=== PATIENT | female | born 1960 | race American Indian/Alaskan Native ===

== ENCOUNTER 2020-09-09 22:41 | Emergency (ER) | payer MEDICARE ==
[2020-09-09 22:56] VITALS: BP 137/88
[2020-09-09] MEDS ORDERED: dexAMETHasone 20 MG/5 ML VIAL IM ONE (22:56)
[2020-09-09] MEDS ORDERED: IPRATROPIUM/ALBUTEROL SULFATE 3 ML AMPUL.NEB IH ONE (22:56)
--- NOTE | 2020-09-09 23:04 | Emergency Department Report ---
Minor Respiratory - [facility] Chief Complaint: Upper Respiratory Infection Stated Complaint: COUGH Time Seen by Provider: 09/09/20 22:55 Duration: 8 days Severity: moderate Minor Respiratory: Yes Rhinorrhea, Yes Cough, Yes Shortness of Breath Other History: 60-year-old -[place] male with a current history of COPD and asthma presents to the emergency room complaining of shortness of breath and cough that is steady for the last 8 days. Patient denies any fever chills no nausea no vomiting. Patient reported to nurse that he has been coughing up yellow mucus. ED Review of Systems ROS: Stated complaint: COUGH Other details as noted in HPI ED Past Medical Hx - Social History Smoking Status: Current Every Day Smoker - Medications Home Medications: Home Medications Medication Instructions Recorded Confirmed Last Taken Type Azithromycin [Zithromax Z-KARYNA] 250 mg PO DAILY #6 tab 09/10/20 Unknown Rx Benzonatate [Tessalon Perles] 100 mg PO Q8HR #15 capsule 09/10/20 Unknown Rx Prednisone [predniSONE 5 mg (6-Day 5 mg PO .TAPER #1 tab.ds.pk 09/10/20 Unknown Rx Pack, 21 Tabs)] Minor Respiratory Exam - Exam General: Vital signs noted. No distress. Alert and acting appropriately. HEENT: Yes Moist Mucous Membranes, No Pharyngeal Erythema, No Pharyngeal Exudates, No Rhinorrhea, No Conjuctival Injection, No Frontal Tenderness, No Maxillary Tenderness Neck: Yes Supple, No Adenopathy Lungs: Yes Good Air Exchange, Yes Cough, No Wheezes, No Ronchi, No Stridor, No Labored Respirations, No Retractions, No Use of Accessory Muscles, No Other Abnormal Lung Sounds Heart: Yes Regular, No Murmur Abdomen: Yes Normal Bowel Sounds, No Tenderness, No Peritoneal Signs Skin: No Rash, No Edema Neurologic: Alert and oriented, no deficits. Musculoskeletal: Unremarkable. ED Course Vital Signs 09/09/20 22:54 Temperature 98.5 F Pulse Rate 101 H Respiratory 20 Rate Blood Pressure 137/88 O2 Sat by Pulse 95 Oximetry - Reevaluation(s) Reevaluation #1: 09/10/20 00:11 Patient lung exam is clear to auscultation. ED Medical Decision Making - Radiology Data Radiology results: report reviewed 60-year-old -[place] male with a current history of COPD and asthma presents to the emergency room complaining of shortness of breath and cough that is steady for the last 8 days. Patient denies any fever chills no nausea no vomiting. Patient reported to nurse that he has been coughing up yellow mucus. Chest x-ray is negative. Patient be treated for bronchitis with Zithromax prednisone taper Tessalon Perles. Patient is encouraged to continue using his inhaler. - Medical Decision Making 60-year-old -[place] male with a current history of COPD and asthma presents to the emergency room complaining of shortness of breath and cough that is steady for the last 8 days. Patient denies any fever chills no nausea no vomiting. Patient reported to nurse that he has been coughing up yellow mucus. Critical care attestation.: If time is entered above; I have spent that time in minutes in the direct care of this critically ill patient, excluding procedure time. ED Disposition Clinical Impression: Bronchitis Disposition: DC-01 TO HOME OR SELFCARE Is pt being admited?: No Does the pt Need Aspirin: No Condition: Stable Instructions: Chronic Bronchitis (ED), Upper Respiratory Infection, Adult, [id number] Additional Instructions: Please take medications as prescribed. Follow-up with your primary care provider. Prescriptions: Prednisone [predniSONE 5 mg (6-Day Pack, 21 Tabs)] 5 mg PO .TAPER #1 tab.ds.pk Benzonatate [Tessalon Perles] 100 mg PO Q8HR #15 capsule Azithromycin [Zithromax Z-KARYNA] 250 mg PO DAILY #6 tab Referrals: [facility] [Provider Group] - 3-5 Days Forms: Work/School Release Form(ED)
--- NOTE | 2020-09-09 23:38 | XRay Report ---
CHEST 2 VIEWS INDICATION / CLINICAL INFORMATION: sob,cough and rales. COMPARISON: None available. FINDINGS: SUPPORT DEVICES: None. HEART / MEDIASTINUM: No significant abnormality. LUNGS / PLEURA: No significant pulmonary or pleural abnormality. No pneumothorax. ADDITIONAL FINDINGS: No significant additional findings. IMPRESSION: 1. No acute findings. Signer Name: Kingston Jimenez MD Signed: 09/09/2020 11:34 PM Workstation Name: [id number]
== END 2020-09-10 00:30 | disposition home or self-care (01) ==
LOC: ED 22:41
DX: J40 Bronchitis, not specified as acute or chronic (principal); F17.200 Nicotine dependence, unspecified, uncomplicated; Z79.899 Other long term (current) drug therapy
CPT/HCPCS: 71046; 94640; 94644; 96372; 99283

== ENCOUNTER 2022-01-17 09:22 | Emergency (ER) | payer MEDICARE ==
[2022-01-17 09:29] VITALS: BP 121/91
[2022-01-17] MEDS ORDERED: ASPIRIN 325 MG TAB PO ONE (09:29)
--- NOTE | 2022-01-17 10:00 | XRay Report ---
CHEST 2 VIEWS INDICATION / CLINICAL INFORMATION: chest pain. COMPARISON: 09/09/2020 FINDINGS: SUPPORT DEVICES: None. HEART / MEDIASTINUM: No significant abnormality. LUNGS / PLEURA: No significant pulmonary or pleural abnormality. No pneumothorax. ADDITIONAL FINDINGS: No significant additional findings. IMPRESSION: 1. No acute findings. Signer Name: Bhaskar Lin DO Signed: 01/17/2022 9:55 AM Workstation Name: [id number]
[2022-01-17 11:26] LABS: Alanine Aminotransferase 103 units/L (7-56); Albumin 4.5 g/dL (3.9-5); BUN/Creatinine Ratio 14; Blood Urea Nitrogen 13 mg/dL (9-20); Calcium 9.4 mg/dL (8.4-10.2); Hemolysis Index 4
[2022-01-17 11:56] LABS: Basophils # (Auto) 0.1 K/mm3 (0.0-0.1); Basophils % (Auto) 1.3 % (0.0-1.8); Eosinophils # (Auto) 0.1 K/mm3 (0.0-0.4); Eosinophils % (Auto) 2.6 % (0.0-4.3); Hematocrit 42.5 % (35.5-45.6); Hemoglobin 14.7 gm/dl (11.8-15.2); Lymphocytes # (Auto) 2.2 K/mm3 (1.2-5.4); Lymphocytes % (Auto) 40.3 % (13.4-35.0); Mean Corpuscular HGB Conc 35 % (32-34); Mean Corpuscular Volume 103 fl (84-94); Monocytes # (Auto) 0.6 K/mm3 (0.0-0.8); Monocytes % (Auto) 10.7 % (0.0-7.3); Platelet Count 195 K/mm3 (140-440); Red Blood Count 4.12 M/mm3 (3.65-5.03); Red Cell Distribution Width 12.9 % (13.2-15.2)
--- NOTE | 2022-01-17 14:45 | Electrocardiograph Report ---
[facility] Test Date: 2022-01-17 Test Time: 09:32:36 Pat Name: HOME SULLIVAN Department: Room: Gender: M Senior Procurement Manager: Gay RON RN : 1960 Requested By: ED DOC Order Number: [id number] Reading MD: Jay Borges Measurements Intervals [place] Rate: 96 P: 72 DE: 160 QRS: 33 QRSD: 78 T: 34 QT: 360 QTc: 454 Interpretive Statements Sinus rhythm Probable left atrial enlargement No previous ECG available for comparison Electronically Signed On 01-17-2022 14:44:53 EDT by Jay Borges
== END 2022-01-18 00:15 | disposition left against medical advice (07) ==
LOC: EDSEX → ED 09:22
DX: R07.9 Chest pain, unspecified (principal); Z53.21 Procedure and treatment not carried out due to patient leaving prior to being seen by health care provider
CPT/HCPCS: 36415; 71046; 80053; 84484; 85025; 93005

== ENCOUNTER 2022-01-26 09:07 | Emergency (ER) | payer MEDICARE ==
--- NOTE | 2022-01-26 09:41 | Emergency Department Report ---
ED Abdominal Pain HPI - General Stated Complaint: CHEST PAIN PUI?: No Time Seen by Provider: 01/26/22 09:40 Source: patient Mode of arrival: Ambulatory Limitations: No Limitations - History of Present Illness Initial Comments: 61 yo comes to ER with known hiatal hernia. He is requesting GI referral. He has had a recent; less than 30 day normal stress test and echo.. HIs pain is epigastric and worse with certain foods that he eats; and with etoh. no cp no sob no fever no chills no n/v/d no bloody stools VS are normal - Related Data Allergies Allergy/AdvReac Type Severity Reaction Status Date / Time No Known Allergies Allergy Unverified 09/09/20 22:53 ED Review of Systems ROS: Stated complaint: CHEST PAIN Other details as noted in HPI Comment: All other systems reviewed and negative ED Past Medical Hx - Past Medical History Previous Medical History?: Yes Hx Hypertension: Yes Hx Arthritis: Yes Additional medical history: hiatal hernia, sciatic nerve pain - Surgical History Past Surgical History?: Yes Additional Surgical History: Cataract OU - Family History Family history: no significant - Social History Smoking Status: Current Every Day Smoker Substance Use Type: Alcohol ED Physical Exam - General Limitations: No Limitations General appearance: alert, in no apparent distress - Head Head exam: Present: atraumatic, normocephalic - Eye Eye exam: Present: normal appearance - ENT ENT exam: Present: mucous membranes moist - Neck Neck exam: Present: normal inspection - Respiratory Respiratory exam: Present: normal lung sounds bilaterally. Absent: respiratory distress - Cardiovascular Cardiovascular Exam: Present: regular rate, normal rhythm. Absent: systolic murmur, diastolic murmur, rubs, gallop - GI/Abdominal GI/Abdominal exam: Present: soft, normal bowel sounds - Rectal Rectal exam: Present: deferred - Extremities Exam Extremities exam: Present: normal inspection - Back Exam Back exam: Present: normal inspection - Neurological Exam Neurological exam: Present: alert, oriented X3 - Psychiatric Psychiatric exam: Present: normal affect, normal mood - Skin Skin exam: Present: warm, dry, intact, normal color. Absent: rash ED Course Vital Signs 01/26/22 09:46 Temperature 98.3 F Pulse Rate 96 H Respiratory 18 Rate Blood Pressure 139/90 [Right] O2 Sat by Pulse 98 Oximetry - Reevaluation(s) Reevaluation #1: pt on PPI daily at home advised to take bid and or add pepcid over the counter ED Medical Decision Making - EKG Data -: EKG Interpreted by Me EKG shows normal: sinus rhythm Rate: normal - EKG Data When compared to previous EKG there are: no significant change Interpretation: no acute changes - Medical Decision Making Vital Signs 01/26/22 09:46 Temperature 98.3 F Pulse Rate 96 H Respiratory 18 Rate Blood Pressure 139/90 [Right] O2 Sat by Pulse 98 Oximetry ekg x 2 nap recent normal echo and stress test pt educated on diet management of his epigastric concerns. He knows he needs endoscopy and is asking for GI referral Pt given referral, he has called from ER and has an appnt. He is to call each am for cancellation to move appnt up. Pt dc home with dc plan of care including diet, meds, activity and follow up. He verbalizes understanding of plan of care. Pt ambulatory, in NAD and taking po without difficulty Critical care attestation.: If time is entered above; I have spent that time in minutes in the direct care of this critically ill patient, excluding procedure time. ED Disposition Clinical Impression: Hiatal hernia Disposition: HOME / SELF CARE / HOMELESS Is pt being admited?: No Does the pt Need Aspirin: No Condition: Stable Instructions: Gastroesophageal Reflux Disease, Adult, [id number] Referrals: CINDI AYALA MD [Staff Physician] - 3-5 Days CHI WIGGINS MD [Staff Physician] - 3-5 Days Forms: Work/School Release Form(ED) Time of Disposition: 09:42
[2022-01-26 09:48] VITALS: BP 139/90
--- NOTE | 2022-01-28 09:42 | Electrocardiograph Report ---
[facility] Test Date: 2022-01-26 Test Time: 09:30:40 Pat Name: HOME SULLIVAN Department: Room: Gender: M Submersible Pilot: GAVIN : 1960 Requested By: AMANDA RODAS Order Number: [id number] Reading MD: Rasta Rouse Measurements Intervals [place] Rate: 96 P: 61 CT: 159 QRS: 51 QRSD: 86 T: 87 QT: 352 QTc: 446 Interpretive Statements Sinus rhythm nonspecific st-t Compared to ECG 01/17/2022 09:32:36 Electronically Signed On 01-28-2022 9:41:25 EDT by Rasta Rouse
== END 2022-01-26 10:41 | disposition home or self-care (01) ==
LOC: ED 09:07
DX: K44.9 Diaphragmatic hernia without obstruction or gangrene (principal); I10 Essential (primary) hypertension; M19.90 Unspecified osteoarthritis, unspecified site; F17.200 Nicotine dependence, unspecified, uncomplicated; Z72.89 Other problems related to lifestyle
CPT/HCPCS: 93005; 99282